=== PATIENT | male | born 1980 | race African-American/Black ===

== ENCOUNTER 2020-04-07 01:02 | Emergency (ER) | payer OTHER ==
[~2020-04-07] VITALS: Ht 182.9 cm; Wt 63.5 kg
[~2020-04-07 01:02] MED LIST: COUMADIN 5 MG TA5 M1 PO; ENOXAPARIN120 MG/0.1 SQ; HYDROCODONE-AP1 EAC6 PO; IBUPROFEN 600600 M1 PO; NOHOMEMEDICATIONS; TYLENOL325 MG PO
[2020-04-07 05:51] VITALS: BP 103/52
== END 2020-04-07 05:52 | disposition home or self-care (01) ==
LOC: ER 01:02
DX: R50.9 Fever, unspecified (principal); J45.909 Unspecified asthma, uncomplicated; Z79.01 Long term (current) use of anticoagulants; Z79.1 Long term (current) use of non-steroidal anti-inflammatories (NSAID); Z79.899 Other long term (current) drug therapy; Z20.828 Contact with and (suspected) exposure to other viral communicable diseases